=== PATIENT | male | born 1970 | race Caucasian/White ===

== ENCOUNTER 2022-06-15 22:21 | Emergency (ER) | payer SELFPAY ==
[~2022-06-15] VITALS: Ht 188 cm; Wt 122.5 kg
[2022-06-15 22:36] VITALS: BP 134/88
[2022-06-15] MEDS ORDERED: diphenhydrAMINE HCL 25 MG CAPSULE PO ONE (23:00)
[2022-06-15] MEDS ORDERED: diphenhydrAMINE HCL 50 MG CAPSULE ONE (23:05)
--- NOTE | 2022-06-15 23:51 | NUR ---
Patient discharged to home in stable condition. Written and verbal after care instructions given. Patient verbalizes understanding of instruction.
== END 2022-06-15 23:53 | disposition home or self-care (01) ==
LOC: ER 22:30
DX: R07.0 Pain in throat (principal); T50.B95A Adverse effect of other viral vaccines, initial encounter; I10 Essential (primary) hypertension; Z60.2 Problems related to living alone; Y92.89 Other specified places as the place of occurrence of the external cause
CPT/HCPCS: 99283; Q0163